=== PATIENT | male | born 1960 | race Caucasian/White ===

== ENCOUNTER 2020-07-06 16:52 | Observation (INO) ==
[2020-07-06 17:17] LABS: Basophils # 0.1 10*3/uL (0.0-0.2); Basophils % 0.5 % (0.0-0.8); Eosinophils % 0.1 % (0.00-10.9); Hematocrit 42.1 VOL% (42.0-52.0); Hemoglobin 14.4 GM/DL (14.0-18.0); Immature Granulocytes % 0.2 %; Immature Granulocytes Absolute 0.02 #; Lymphocytes # 0.7 10*3/uL (1.4-4.0); Lymphocytes % 7.7 % (21.2-54.2); Mean Corpuscular HGB Conc 34.2 GM/DL (32-36); Mean Corpuscular Volume 94.2 FL (87-102); Mean Platelet Volume 10.4 FL (9.6-12.0); Monocytes % 8.6 % (1.7-12.7); Neutrophils % 82.9 % (38.7-73.9); Platelet Count 127 T/CUMM (130-400); Red Blood Count 4.47 MC/CUMM (3.8-5.5); Red Cell Distribution Width 13.2 % (9.3-17.3); White Blood Count 9.3 T/CUMM (4-12)
[2020-07-06] MEDS ORDERED: THIAMINE 200 MG/2 ML VIAL IV STA (17:19)
[2020-07-06] MEDS ORDERED: SODIUM CHLORIDE 0.9% 2,000 ML IV STA (17:19)
[2020-07-06] MEDS ORDERED: LABETALOL 20 MG/4 ML SYRINGE IV STA ×2 (17:20→18:45)
[2020-07-06 17:23] LABS: INR 1.2; PT Patient Result 12.9 SECS (10.5-12.0); Partial Thromboplastin Time 26.5 SECS (23.9-33.8)
[2020-07-06 17:24] LABS: Bilirubin,Urine Small mg/dL (Negative); Blood, Urine Negative (Negative); Glucose,Urine (UA) Negative (Negative); Ketones,Urine 20 mg/dL (Negative); Mucus,Urine Many /LPF (Occasional); Nitrite,Urine Negative (Negative); Protein,Urine >=500 MG/DL; RBC,Urine 19 /HPF (0-4); Urine Appearance CLEAR (Clear); Urine Color Amber (Yellow); Urine Specific Gravity 1.025 (1.001-1.035)
[2020-07-06 17:27] LABS: Barbiturates Screen,Urine Negative (Negative); Benzodiazepines Screen,Urine Negative (Negative); Cannabinoid Screen,Urine Positive (Negative); Opiate Screen,Urine Negative (Negative); Phencyclidine Screen,Urine Negative (Negative)
[2020-07-06 17:28] LABS: Albumin 4.1 G/DL (3.4-5.0); Bilirubin,Total 2.3 MG/DL (0.2-1.0); Calcium 9.1 MG/DL (8.5-10.1); Osmolality,Calculated 282.1 MOS/KG (273-304); Total Protein 8.3 G/DL (6.4-8.2)
[2020-07-06] MEDS ORDERED: LORazepam 2 MG/1 ML VIAL IV STA (18:48)
[2020-07-06] MEDS ORDERED: GLUCAGON 1 MG VIAL IM PRN (18:52)
[2020-07-06] MEDS ORDERED: DEXTROSE 50% 25 GM/50 ML VIAL IV PRN (18:52)
[2020-07-06] MEDS: SODIUM CHLORIDE 0.9% 1,000 ML IV SCH (19:20)
[2020-07-06] MEDS: ENOXAPARIN 40 MG/0.4 ML SYRINGE SUBCUT SCH (19:32)
[2020-07-06] MEDS: carvediloL 12.5 MG TABLET PO SCH (21:33)
[2020-07-06] MEDS: hydrALAZINE 20 MG/1 ML VIAL IV PRN (21:35)
[2020-07-06] MEDS: LORazepam 2 MG/1 ML VIAL IV PRN (22:55)
[2020-07-07] MEDS: SODIUM CHLORIDE 0.9% 1,000 ML IV SCH ×5 (02:30→18:03)
[2020-07-07] MEDS: hydrALAZINE 20 MG/1 ML VIAL IV PRN ×2 (04:55→11:59)
[2020-07-07] MEDS: LORazepam 2 MG/1 ML VIAL IV PRN ×4 (07:42→21:44)
[2020-07-07] MEDS ORDERED: THIAMINE 200 MG/2 ML VIAL IV SCH (09:00)
[2020-07-07] MEDS: PANTOPRAZOLE 40 MG TABLET PO SCH (09:15)
[2020-07-07] MEDS: carvediloL 12.5 MG TABLET PO SCH ×2 (09:15→21:44)
[2020-07-07] MEDS: ONDANSETRON 4 MG/2 ML VIAL IV PRN ×2 (12:04→16:52)
[2020-07-07] MEDS: ACETAMINOPHEN 325 MG TABLET PO PRN ×3 (12:04→21:44)
[2020-07-07] MEDS: ENOXAPARIN 40 MG/0.4 ML SYRINGE SUBCUT SCH ×2 (16:52→18:03)
[2020-07-08] MEDS: LORazepam 2 MG/1 ML VIAL IV PRN ×2 (02:06→09:41)
[2020-07-08] MEDS: SODIUM CHLORIDE 0.9% 1,000 ML IV SCH (02:07)
[2020-07-08 06:08] LABS: Basophils % 0.3 % (0.0-0.8); Eosinophils # 0.1 10*3/uL (0.0-0.87); Eosinophils % 2.6 % (0.00-10.9); Hemoglobin 12.8 GM/DL (14.0-18.0); Immature Granulocytes % 0.3 %; Immature Granulocytes Absolute 0.01 #; Lymphocytes # 0.9 10*3/uL (1.4-4.0); Lymphocytes % 23.5 % (21.2-54.2); Mean Corpuscular HGB Conc 33.7 GM/DL (32-36); Mean Corpuscular Volume 96.2 FL (87-102); Mean Platelet Volume 11.4 FL (9.6-12.0); Monocytes % 9.2 % (1.7-12.7); Neutrophils % 64.1 % (38.7-73.9); Platelet Count 88 T/CUMM (130-400); Red Blood Count 3.95 MC/CUMM (3.8-5.5); White Blood Count 3.9 T/CUMM (4-12)
[2020-07-08 06:33] LABS: Hypochromasia 1+; Microcytosis 1+; Platelet Estimate Decreased
[2020-07-08 06:38] LABS: Albumin 2.8 G/DL (3.4-5.0); Bilirubin,Total 1.7 MG/DL (0.2-1.0); Calcium 7.9 MG/DL (8.5-10.1); Osmolality,Calculated 278.4 MOS/KG (273-304); Potassium 3.5 MMOL/L (3.5-5.1); Total Protein 6.5 G/DL (6.4-8.2)
[2020-07-08] MEDS ORDERED: MULTIVITAMIN (CENTRUM) TABLET PO SCH (09:00)
[2020-07-08] MEDS ORDERED: amLODIPine 10 MG TABLET PO SCH (09:00)
[2020-07-08] MEDS ORDERED: THIAMINE 100 MG TABLET PO SCH (09:00)
[2020-07-08] MEDS ORDERED: FOLIC ACID 1 MG TABLET PO SCH (09:00)
[2020-07-08] MEDS: carvediloL 12.5 MG TABLET PO SCH (09:40)
[2020-07-08] MEDS: PANTOPRAZOLE 40 MG TABLET PO SCH (09:40)
[2020-07-08 13:01] VITALS: BP 165/87
== END 2020-07-08 15:47 | disposition home or self-care (01) ==
LOC: N.ED 16:52 → N.EDINP 16:52 → N.TELES 22:34
PROVIDERS: ADMIT Internal Medicine; ATTEND Internal Medicine